=== PATIENT | male | born 1960 | race Two or more races ===

== ENCOUNTER 2023-12-19 18:06 | Inpatient (IN) | payer OTHER ==
[~2023-12-19] VITALS: Ht 177.8 cm; Wt 68.5 kg
[2023-12-19] MEDS: IV NORMAL SALINE 1000 ML BAG IV ONE (19:04)
[2023-12-19] MEDS ORDERED: NA P133E8 RC (19:05)
[2023-12-19] MEDS ORDERED: ACET325T53 PO (19:05)
[2023-12-19] MEDS ORDERED: AMLO10TA59 PO (19:05)
[2023-12-19] MEDS ORDERED: GUAI177L20 PO (19:05)
[2023-12-19] MEDS ORDERED: PANT40TA2 PO (19:05)
[2023-12-19] MEDS ORDERED: MELA1TAB27 PO (19:05)
[2023-12-19] MEDS ORDERED: CHOL10005 PO (19:05)
[2023-12-19] MEDS ORDERED: HYOS-15 PO (19:05)
[2023-12-19] MEDS ORDERED: DEXT50DI8 IV (19:05)
[2023-12-19] MEDS ORDERED: MULT-1119 PO (19:05)
[2023-12-19] MEDS ORDERED: ONDA4TAB5 PO (19:05)
[2023-12-19] MEDS ORDERED: ASCO500C18 PO (19:05)
[2023-12-19] MEDS ORDERED: INSU100V8 SQ (19:05)
[2023-12-19] MEDS ORDERED: THIA50TA10 PO (19:05)
[2023-12-19] MEDS ORDERED: POLY17PO4 PO (19:05)
[2023-12-19] MEDS ORDERED: SENN8.6T19 PO (19:05)
[2023-12-19] MEDS ORDERED: DOCU-141 PO (19:05)
[2023-12-19] MEDS ORDERED: TRAM50TA2 PO (19:05)
[2023-12-19] MEDS ORDERED: TAMS-3 PO (19:05)
[2023-12-19] MEDS ORDERED: BANA1PAC PO (19:05)
[2023-12-19] MEDS ORDERED: CRAN3875 PO (19:05)
[2023-12-19] MEDS ORDERED: GLUC1KIT IM (19:05)
[2023-12-19] MEDS ORDERED: BENZ1LOZ58 PO (19:05)
[2023-12-19] MEDS ORDERED: INSU100V39 SQ (19:05)
[2023-12-19 19:18] LABS: BASOPHILS % (AUTO) 0.2 % (0.0-2.0); EOSINOPHILS % (AUTO) 0.1 % (0.0-7.0); HEMATOCRIT 28.5 % (36.7-47.1); HEMOGLOBIN 9.2 g/dL (12.5-16.3); LYMPHOCYTES # (AUTO) 1.3 K/uL (0.8-4.8); LYMPHOCYTES % (AUTO) 8.1 % (20.5-51.5); MEAN CORPUSCULAR HGB CONC 32 g/dL (32.5-36.3); MEAN CORPUSCULAR VOLUME 87.1 fL (73.0-96.2); MONOCYTES # (AUTO) 1.2 K/uL (0.1-1.30); MONOCYTES % (AUTO) 7.7 % (0.0-11.0); NEUTROPHILS # (AUTO) 13.3 K/uL (1.8-8.9); NEUTROPHILS % (AUTO) 83.9 % (38.5-71.5); PLATELET COUNT (AUTO) 171 K/uL (152-348); RED BLOOD CELL COUNT(AUTO) 3.27 MIL/uL (4.06-5.63); RED CELL DISTRIBUTION WIDTH 16.1 % (12.1-16.2); WHITE BLOOD COUNT (AUTO) 15.9 K/uL (3.6-10.2)
[2023-12-19 19:19] LABS: DIFFERENTIAL COMMENT 1
[2023-12-19 19:25] LABS: CARBON DIOXIDE 24 mmol/L (21-32); CHLORIDE 105 mmol/L (98-107); CREATININE 4.4 mg/dL (0.6-1.3); GLUCOSE 107 mg/dL (74-106); POTASSIUM 4.1 mmol/L (3.5-5.1); SODIUM SERUM 141 mmol/L (136-145); UREA NITROGEN, BLOOD 72 mg/dL (7-18)
[2023-12-19 19:37] LABS: ALANINE AMINOTRANSFERASE 14 U/L (16-63); ALBUMIN 2.2 g/dL (3.4-5.0); ALKALINE PHOSPHATASE 113 U/L (50-136); ASPARTATE AMINOTRANSFERASE 10 U/L (15-37); BILIRUBIN,TOTAL 1.6 mg/dL (0.2-1.0); NT-PRO BNP 5296 pg/mL (0-125); TOTAL PROTEIN, SERUM 7.3 g/dL (6.4-8.2)
[2023-12-19 19:50] LABS: *BILIRUBIN,URIN NEGATIVE (NEGATIVE); *BLOOD, URINE 2+ (NEGATIVE); *COLOR,URINE YELLOW (YELLOW); *KETONES,URINE TRACE (NEGATIVE); *PROTEIN,URINE 3+ (NEGATIVE); *UROBILINOGEN,URINE 0.2 E.U./dl (NORMAL); LEUKOCYTE ESTERASE ,URINE 3+ (NEGATIVE); NITRITE, URINE NEGATIVE (NEGATIVE); UGLUCOSE NEGATIVE (NEGATIVE)
[2023-12-19 19:56] LABS: *CLARITY,URINE SLIGHTLY CLOUDY (CLEAR)
[2023-12-19 20:06] LABS: BACTERIA,URINE MODERATE /HPF (NONE SEEN); SQUAMOUS EPITHELIAL CELL,UR FEW /HPF (NONE SEEN); WBC,URINE 20-50 /HPF (0-3)
[2023-12-19] MEDS ORDERED: ONDANSETRON 4 MG/2 ML VIAL IV PRN (21:45)
[2023-12-19] MEDS ORDERED: CEFTRIAXONE 1 G in IV DEXTROSE 5% 50 ML IV SCH (21:45)
[2023-12-19] MEDS: ENOXAPARIN SODIUM 30 MG/0.3 ML DISP.SYRIN SQ SCH (22:05)
[2023-12-19] MEDS ORDERED: PIPERACILLIN/TAZOBACTAM/D5W 50 ML ONE (22:13)
[2023-12-19] MEDS ORDERED: CEFTRIAXONE /D5W 50ML IVPB **ER PYXIS IV ONE (22:14)
[2023-12-19] MEDS: PIPERACILLIN/TAZO 2.25 G in IV DEXTROSE 5% 50 ML IV STA (22:20)
[2023-12-20 01:14] VITALS: BP 151/85; TEMP 100.5; O2SAT 95
[2023-12-20] MEDS: ACETAMINOPHEN 325 MG TABLET PO PRN (01:33)
[2023-12-20] MEDS: IV NS 1000 ML 1,000 ML IV PRN (01:37)
[2023-12-20 04:32] VITALS: O2SAT 97
[2023-12-20 06:00] VITALS: BP 113/70; TEMP 99.1; O2SAT 95
[2023-12-20 06:36] LABS: BASOPHILS % (AUTO) 0.2 % (0.0-2.0); EOSINOPHILS % (AUTO) 0.3 % (0.0-7.0); HEMATOCRIT 25.9 % (36.7-47.1); HEMOGLOBIN 8.4 g/dL (12.5-16.3); LYMPHOCYTES # (AUTO) 1.5 K/uL (0.8-4.8); LYMPHOCYTES % (AUTO) 12.1 % (20.5-51.5); MEAN CORPUSCULAR HEMOGLOBIN 28.1 uug (23.8-33.4); MEAN CORPUSCULAR HGB CONC 33 g/dL (32.5-36.3); MEAN CORPUSCULAR VOLUME 86.7 fL (73.0-96.2); MONOCYTES # (AUTO) 0.8 K/uL (0.1-1.30); MONOCYTES % (AUTO) 6.7 % (0.0-11.0); NEUTROPHILS # (AUTO) 9.7 K/uL (1.8-8.9); NEUTROPHILS % (AUTO) 80.7 % (38.5-71.5); PLATELET COUNT (AUTO) 170 K/uL (152-348); RED BLOOD CELL COUNT(AUTO) 2.99 MIL/uL (4.06-5.63); RED CELL DISTRIBUTION WIDTH 16.3 % (12.1-16.2)
[2023-12-20 06:42] LABS: DIFFERENTIAL COMMENT 1
[2023-12-20] MEDS ORDERED: INSU100V7 SQ (07:04)
[2023-12-20] MEDS ORDERED: BANA1PAC PO (07:11)
[2023-12-20 07:19] LABS: CALCIUM 8.3 mg/dL (8.5-10.1); CREATININE 4.6 mg/dL (0.6-1.3); MAGNESIUM 2.1 mg/dL (1.8-2.4); PHOSPHOROUS 5.5 mg/dL (2.5-4.9); POTASSIUM 3.8 mmol/L (3.5-5.1)
[2023-12-20 08:08] VITALS: BP 114/62; TEMP 99.3; O2SAT 95
[2023-12-20] MEDS: MEROPENEM 500 MG in IV NORMAL SALINE 50 ML IV SCH (09:02)
[2023-12-20] MEDS ORDERED: TRAMADOL HCL 50 MG TABLET PO PRN (11:15)
[2023-12-20] MEDS: SENNOSIDES 1 TABLET PO SCH (11:15)
[2023-12-20] MEDS: MIRALAX 17 GM POWD.PACK PO SCH (11:15)
[2023-12-20] MEDS ORDERED: DEXTROSE 50% 50 ML DISP.SYRIN IV PRN (11:15)
[2023-12-20] MEDS: THIAMINE HCL 100 MG TABLET PO SCH (11:37)
[2023-12-20] MEDS: BLOOD SUGAR DIAGNOSTIC 1 EACH STRIP VI SCH (11:37)
[2023-12-20] MEDS: ASCORBIC ACID 500 MG TABLET PO SCH (11:37)
[2023-12-20] MEDS: MULTIVITAMINS,THERAPEUTIC TABLET PO SCH (11:37)
[2023-12-20] MEDS: CHOLECALCIFEROL 1,000 UNIT TABLET PO SCH (11:37)
[2023-12-20] MEDS: INSULIN REGULAR, HUMAN 300 UNIT/3 ML VIAL SQ PRN (11:39)
[2023-12-20 11:48] LABS: ALBUMIN 2.1 g/dL (3.4-5.0); BILIRUBIN,DIRECT 1.3 mg/dL (0.0-0.2); BILIRUBIN,TOTAL 1.9 mg/dL (0.2-1.0); TOTAL PROTEIN, SERUM 6.8 g/dL (6.4-8.2)
[2023-12-20] MEDS: HEPARIN SODIUM,PORCINE 5,000 UNITS/ML VIAL SQ SCH (12:14)
[2023-12-20 12:32] VITALS: BP 135/80; TEMP 100.1; O2SAT 98
[2023-12-20 14:49] LABS: *BILIRUBIN,URIN 1+ (NEGATIVE); *BLOOD, URINE 2+ (NEGATIVE); *COLOR,URINE YELLOW (YELLOW); *KETONES,URINE NEGATIVE (NEGATIVE); *PROTEIN,URINE 3+ (NEGATIVE); *UROBILINOGEN,URINE 0.2 E.U./dl (NORMAL); LEUKOCYTE ESTERASE ,URINE 3+ (NEGATIVE); NITRITE, URINE NEGATIVE (NEGATIVE); PH,URINE 7.5 (5.0-8.0); UGLUCOSE NEGATIVE (NEGATIVE)
[2023-12-20 14:59] LABS: *CLARITY,URINE SLIGHTLY CLOUDY (CLEAR)
[2023-12-20 15:21] LABS: *CREATININE,URINE 82.9 mg/dL (30-125); *URINE TOTAL PROTEIN RANDOM 198.5 mg/dL (<150/24HR)
[2023-12-20 15:23] LABS: WBC,URINE 20-50 /HPF (0-3)
[2023-12-20 15:24] LABS: BACTERIA,URINE MODERATE /HPF (NONE SEEN); SQUAMOUS EPITHELIAL CELL,UR FEW /HPF (NONE SEEN)
[2023-12-20 20:25] VITALS: BP 100/46; TEMP 102.3; O2SAT 91
[2023-12-20] MEDS: INSULIN GLARGINE,HUM 300 UNITS/3 ML CARTRIDGE SQ SCH (21:00)
[2023-12-20] MEDS: TAMSULOSIN HCL 0.4 MG CAP.SR.24H PO SCH (21:00)
[2023-12-20] MEDS ORDERED: ENOXAPARIN SODIUM 30 MG/0.3 ML DISP.SYRIN SQ SCH ×2 (21:00)
[2023-12-21] VITALS (7 sets, daily range): BP systolic 102–124; BP diastolic 59–72; TEMP 97.3–99.7; O2SAT 90–98
[2023-12-21] MEDS: PANTOPRAZOLE SODIUM 40 MG TABLET.DR PO SCH (07:00)
[2023-12-21] MEDS: DOCUSATE SODIUM 100 MG CAPSULE PO SCH (08:07)
[2023-12-21] MEDS: AMLODIPINE 10 MG TABLET PO SCH (08:07)
[2023-12-22 04:54] VITALS: O2SAT 98
[2023-12-22 06:54] VITALS: BP 136/78; TEMP 98.4; O2SAT 93
[2023-12-22 07:03] LABS: BASOPHILS % (AUTO) 0.2 % (0.0-2.0); EOSINOPHILS # (AUTO) 0.1 K/uL (0.0-0.7); EOSINOPHILS % (AUTO) 1.3 % (0.0-7.0); HEMATOCRIT 26.2 % (36.7-47.1); HEMOGLOBIN 8.5 g/dL (12.5-16.3); LYMPHOCYTES # (AUTO) 1.7 K/uL (0.8-4.8); MEAN CORPUSCULAR HGB CONC 32 g/dL (32.5-36.3); MEAN CORPUSCULAR VOLUME 86.5 fL (73.0-96.2); MONOCYTES % (AUTO) 10.5 % (0.0-11.0); NEUTROPHILS # (AUTO) 6.9 K/uL (1.8-8.9); PLATELET COUNT (AUTO) 180 K/uL (152-348); RED BLOOD CELL COUNT(AUTO) 3.03 MIL/uL (4.06-5.63); RED CELL DISTRIBUTION WIDTH 16.1 % (12.1-16.2); WHITE BLOOD COUNT (AUTO) 9.7 K/uL (3.6-10.2)
[2023-12-22 07:13] LABS: DIFFERENTIAL COMMENT 1
[2023-12-22 07:17] LABS: CALCIUM 8.2 mg/dL (8.5-10.1); CREATININE 4.2 mg/dL (0.6-1.3); MAGNESIUM 2.3 mg/dL (1.8-2.4); PHOSPHOROUS 3.3 mg/dL (2.5-4.9); POTASSIUM 3.6 mmol/L (3.5-5.1)
[2023-12-22 15:31] VITALS: BP 139/78; TEMP 97.9; O2SAT 94
[2023-12-23 06:18] VITALS: BP 133/74; TEMP 98; O2SAT 91
[2023-12-23 11:30] VITALS: BP 140/78; TEMP 98.5; O2SAT 94
[2023-12-23 15:41] VITALS: O2SAT 96
[2023-12-23 16:00] VITALS: BP 151/88; TEMP 97.7; O2SAT 95
[2023-12-23 20:58] VITALS: BP 161/90; TEMP 98.2; O2SAT 94
[2023-12-24 12:00] VITALS: BP 124/66; TEMP 97.5; O2SAT 96
[2023-12-24 12:21] LABS: BASOPHILS % (AUTO) 0.2 % (0.0-2.0); DIFFERENTIAL COMMENT 1; EOSINOPHILS # (AUTO) 0.1 K/uL (0.0-0.7); EOSINOPHILS % (AUTO) 1.4 % (0.0-7.0); HEMATOCRIT 29.3 % (36.7-47.1); HEMOGLOBIN 9.6 g/dL (12.5-16.3); LYMPHOCYTES % (AUTO) 15.3 % (20.5-51.5); MEAN CORPUSCULAR HEMOGLOBIN 28.4 uug (23.8-33.4); MEAN CORPUSCULAR HGB CONC 33 g/dL (32.5-36.3); MEAN CORPUSCULAR VOLUME 86.6 fL (73.0-96.2); MONOCYTES # (AUTO) 0.5 K/uL (0.1-1.30); MONOCYTES % (AUTO) 8.1 % (0.0-11.0); NEUTROPHILS # (AUTO) 4.8 K/uL (1.8-8.9); PLATELET COUNT (AUTO) 257 K/uL (152-348); RED BLOOD CELL COUNT(AUTO) 3.39 MIL/uL (4.06-5.63); RED CELL DISTRIBUTION WIDTH 16.2 % (12.1-16.2); WHITE BLOOD COUNT (AUTO) 6.4 K/uL (3.6-10.2)
[2023-12-24 12:23] LABS: CALCIUM 8.1 mg/dL (8.5-10.1); CREATININE 3.1 mg/dL (0.6-1.3); POTASSIUM 3.6 mmol/L (3.5-5.1)
[2023-12-24 16:00] VITALS: BP 136/65; TEMP 98.1; O2SAT 98
[2023-12-24 21:29] VITALS: BP 150/88; TEMP 98.2; O2SAT 96
[2023-12-25 04:00] VITALS: BP 150/77; TEMP 97.2; O2SAT 97
[2023-12-25 11:26] LABS: BASOPHILS % (AUTO) 0.1 % (0.0-2.0); EOSINOPHILS # (AUTO) 0.1 K/uL (0.0-0.7); EOSINOPHILS % (AUTO) 0.9 % (0.0-7.0); HEMATOCRIT 29.9 % (36.7-47.1); HEMOGLOBIN 9.5 g/dL (12.5-16.3); LYMPHOCYTES # (AUTO) 1.1 K/uL (0.8-4.8); LYMPHOCYTES % (AUTO) 13.1 % (20.5-51.5); MEAN CORPUSCULAR HEMOGLOBIN 27.7 uug (23.8-33.4); MEAN CORPUSCULAR HGB CONC 32 g/dL (32.5-36.3); MEAN CORPUSCULAR VOLUME 87.5 fL (73.0-96.2); MONOCYTES # (AUTO) 0.5 K/uL (0.1-1.30); MONOCYTES % (AUTO) 5.4 % (0.0-11.0); NEUTROPHILS # (AUTO) 6.7 K/uL (1.8-8.9); NEUTROPHILS % (AUTO) 80.5 % (38.5-71.5); PLATELET COUNT (AUTO) 319 K/uL (152-348); RED BLOOD CELL COUNT(AUTO) 3.41 MIL/uL (4.06-5.63); RED CELL DISTRIBUTION WIDTH 16.8 % (12.1-16.2); WHITE BLOOD COUNT (AUTO) 8.4 K/uL (3.6-10.2)
[2023-12-25 11:39] LABS: DIFFERENTIAL COMMENT 1
[2023-12-25 11:42] LABS: CALCIUM 8.1 mg/dL (8.5-10.1); CREATININE 2.8 mg/dL (0.6-1.3); POTASSIUM 3.7 mmol/L (3.5-5.1)
[2023-12-25] MEDS ORDERED: MERO500P IV (12:59)
[2023-12-25 13:00] VITALS: BP 138/71; TEMP 97.3; O2SAT 96
[2023-12-25 15:40] VITALS: BP 153/86; TEMP 97.8; O2SAT 98
== END 2023-12-25 16:05 | DRG 466 ==
LOC: ER 18:07 → TELE3 12-20 00:10 → MEDSURG3 12-21 07:45
PROVIDERS: ADMIT Nurse Practitioner Acute Care; ATTEND Nurse Practitioner Acute Care
DX: T83.511A Infection and inflammatory reaction due to indwelling urethral catheter, initial encounter (principal); A41.50 Gram-negative sepsis, unspecified; N17.0 Acute kidney failure with tubular necrosis; I21.4 Non-ST elevation (NSTEMI) myocardial infarction; E44.0 Moderate protein-calorie malnutrition; I12.0 Hypertensive chronic kidney disease with stage 5 chronic kidney disease or end stage renal disease; E88.09 Other disorders of plasma-protein metabolism, not elsewhere classified; D63.8 Anemia in other chronic diseases classified elsewhere; E11.22 Type 2 diabetes mellitus with diabetic chronic kidney disease; K76.1 Chronic passive congestion of liver; R17 Unspecified jaundice; N18.5 Chronic kidney disease, stage 5; Y73.8 Miscellaneous gastroenterology and urology devices associated with adverse incidents, not elsewhere classified; Y92.129 Unspecified place in nursing home as the place of occurrence of the external cause; N39.0 Urinary tract infection, site not specified; E78.5 Hyperlipidemia, unspecified; Z96.652 Presence of left artificial knee joint; Z91.199 Patient's noncompliance with other medical treatment and regimen due to unspecified reason; G89.4 Chronic pain syndrome; F41.9 Anxiety disorder, unspecified; Z79.4 Long term (current) use of insulin; F10.10 Alcohol abuse, uncomplicated; N13.6 Pyonephrosis; B96.89 Other specified bacterial agents as the cause of diseases classified elsewhere
CPT/HCPCS: 36415; 71045; 76770; 83605; 83735; 84100; 84300; 84484; 85025; 85730; 87040; 93005; 93307; 94760; A4606; A4663; G0378; J0696; J1644; J1650; J1815; J2185; J2543; J7040